=== PATIENT | male | born 1975 | race Two or more races ===

== ENCOUNTER 2024-05-14 10:57 | Emergency (ER) | payer MEDICAID, SELFPAY ==
[2024-05-14 11:10] VITALS: BP 125/81; PULSE 70; RESP 18; TEMP 37.1; O2SAT 96; BMI 31.3
--- NOTE | 2024-05-14 11:22 | EKG_ITS ---
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
--- NOTE | 2024-05-14 11:22 | XR_ITS ---
Examination: PA lateral chest 2 views TECHNIQUE: Upright PA lateral chest 2 views Exam date and time: May 14, 2024 1140 hours INDICATIONS: Onset chest pain today. FINDINGS: Normal heart size. Lungs are clear. The osseous structures are intact IMPRESSION: No active disease
--- NOTE | 2024-05-14 11:23 | PD.EDRME ---
Rapid Medical Screening Exam RME Arrival date/time: 05/14/24 10:57 48-year-old male presents emergency department complaints of dizziness generalized fatigue Chief Complaint: Flu Like Symptoms Time Seen by Provider: 05/14/24 10:58 Vital signs: Vital Signs Temperature 98.8 F 05/14/24 11:10 Pulse Rate 70 05/14/24 11:10 Respiratory Rate 18 05/14/24 11:10 Blood Pressure 125/81 05/14/24 11:10 Pulse Oximetry (%) 96 05/14/24 11:10 Oxygen Delivery Method Room Air 05/14/24 11:10
[2024-05-14 12:11] LABS: Basophils % (Auto) 1 % (0-2.5); Eosinophils % (Auto) 0 % (0-10); Hematocrit 47.1 % (41.0-53.0); Hemoglobin 16.4 g/dL (13.5-16.0); Immature Granulocytes % (Auto) 0 % (0-0); Immature Granulocytes Auto 0.03 Thou/mm3 (0.00-0.00); Lymphocytes # (Auto) 1.8 Thou/mm3 (1.0-4.8); Lymphocytes % (Auto) 21 % (10-50); Mean Corpuscular HGB Conc 34.8 g/dl (31.0-37.0); Mean Corpuscular Hemoglobin 29.4 pg (25.0-35.0); Mean Corpuscular Volume 85 fL (80-100); Monocytes # (Auto) 0.6 Thou/mm3 (0.0-0.8); Monocytes % (Auto) 7 % (0-12); Neutrophils # (Auto) 6.2 Thou/mm3 (1.8-7.7); Neutrophils % (Auto) 72 % (37-80); Nucleated Red Blood Cell % 0 /100 WBC (0); Platelet Count 196 Thou/mm3 (140-440); RDW Standard Deviation 36.2 fL (35.1-43.9); Red Blood Count 5.57 Miln/mm3 (4.50-5.90); White Blood Count 8.7 Thou/mm3 (3.8-10.6)
[2024-05-14 12:50] LABS: Alanine Aminotransferase < 7 U/L (10-49); Albumin/Globulin Ratio 1.9 (1.2-2.2); Alkaline Phosphatase 70 U/L (46-116); Anion Gap 9 (7-16); Aspartate Amino Transferase 21 U/L (0-34); BUN/Creatinine Ratio 10 Ratio (12-20); Bilirubin,Total 1.1 mg/dL (0.3-1.2); Blood Urea Nitrogen 9 mg/dL (9-23); Calcium 9.9 mg/dL (8.3-10.6); Calcium (Corrected) 9.9 mg/dL (8.5-10.1); Carbon Dioxide 26.1 mMol/L (20.0-31.0); Chloride 101 mMol/L (98-107); Creatinine (Component) 0.9 mg/dL (0.6-1.3); Estimated Creatinine Clearance 112.5 mL/min (>60); Globulin 2.7 gm/dL (2.3-3.5); Glucose 97 mg/dL (74-106); Osmolality,Calculated 270 (275-295); Sodium 136 mMol/L (136-145); Total Protein 7.7 gm/dL (5.7-8.2); Troponin I < 0.020 ng/mL (0.0-0.045); eGFR > 60 See Note
[2024-05-14 13:24] LABS: Collection Type, Urine Clean Catch; Squamous Epithelial Cell,Urine 0 /hpf (0-5)
[2024-05-14 13:33] LABS: Bacteria,Urine Rare; Bilirubin,Urine Negative (Negative); Blood,Urine Negative (Negative); Clarity,Urine Clear (Clear/Hazy); Color,Urine Yellow (Lt Yel-Yel); Culture Indicated,Urine Not Indicated; Glucose, Urine Negative (Negative); Ketones,Urine Negative (Negative); Leukocyte Esterase,Urine Negative (Negative); Nitrite,Urine Negative (Negative); PH,Urine 5.5 (5.0-7.0); Protein,Urine Negative (Neg - Trace); RBC,Urine 2 /hpf (0-3); Specific Gravity,Urine 1.024 (1.001-1.035); Urobilinogen,Urine Negative mg/dL (0.0-1.0); WBC,Urine 6 /hpf (0-5)
[2024-05-14 13:37] LABS: Amphetamine/Methamp Scrn,U Negative (Negative); Barbiturate Screen,Urine Negative (Negative); Benzodiazepines Screen,Urine Negative (Negative); Benzoylecgonine Screen, Ur Negative (Negative); Fentanyl Screen,Urine Negative (Negative); Opiate Screen,Urine Negative (Negative); THC Screen,Urine Negative (Negative)
[2024-05-14 13:46] VITALS: BP 133/76; PULSE 67; RESP 16; TEMP 36.4; O2SAT 98
--- NOTE | 2024-05-14 14:24 | PC.NURSE ---
in to assess pt. pt with c/o dizziness, nausea, weakness and headache since this morning. pt reports he is no longer having symptoms of dizziness at this time. pending providers eval at this time. call light is within reach. plan of care ongoing.
--- NOTE | 2024-05-14 14:44 | PD.EDADULT ---
ED General RME/HPI General Chief complaint: Dizziness Stated complaint: DIZZINESS, CHILLS, SWEATING, WEAK STOMACH Time Seen by Provider: 05/14/24 10:58 Arrival date/time: 05/14/24 10:57 CC: Dizziness HPI patient had onset of dizziness this morning been intermittent and ended after approximately 2 to 3 hours the patient denies any falls, but states the room was spinning no prior history of similar events denies chest pain shortness of breath difficulty breathing altered mentation is complaining of a mild headache that has since resolved. RME / HPI RME / HPI narrative: 05/14/24 10:57 48-year-old male presents emergency department complaints of dizziness generalized fatigue Related Data Previous Rx's ?Medication ?Instructions ?Recorded hydrocodone 5 mg-acetaminophen 325 1 tab PO BID PRN pain #14 tabs 01/19/21 mg tablet ibuprofen 800 mg tablet 800 mg PO TID PRN pain #30 tabs 01/19/21 meclizine 25 mg tablet 25 mg PO BID PRN dizziness #10 tabs 05/14/24 Allergies Allergy/AdvReac Type Severity Reaction Status Date / Time No Known Allergies Allergy Verified 05/14/24 11:00 Review of Systems Review of Systems Narrative Review of Systems: GEN: No fever, no chills, no weight loss EYES: No discharge, no visual changes, no pain HEENT: No ear pain, no congestion, no sore throat PULM: No shortness of breath, no cough, no congestion CV: No chest pain, no dyspnea on exertion, no palpitations GI: No nausea, no vomiting, no diarrhea, no pain, no constipation : No frequency, no urgency, no dysuria MUSC/SKEL: No joint pain, no back pain SKIN: No rash PSYCH: No hallucinations, no depression HEME/LYMPH: No easy bleeding or bruising tendencies NEURO: No weakness, + headache,+ dizziness ED Exam Narrative Physical exam: [General: Not in any acute distress Head normocephalic HEENT: Eyes pupils are PERRLA EOMs are intact no entrapment, no nystagmus vertical or horizontal, nose, no rhinorrhea all other subsystems of HEENT are within acceptable limits Neck is supple nontender Chest equal chest rise nontender to palpation Respiratory: Clear to auscultation no wheezes crackles or rubs CV: Rate rhythm is regular no murmurs rubs or clicks Abdomen is soft nontender no masses positive bowel sounds all 4 quadrants Back: No CVA tenderness no spinous process tenderness from cervical spine thoracic and lumbar spine Skin: Intact no petechiae rash induration ulceration or crepitus Extremities: Moving all extremity against resistance cap refill less than 2 seconds neurosensory intact Neuro: Awake alert oriented x3 Glascow coma 15 no focal deficits] Course Quality Measures none Orders Category Date Time Status Bedside COVID-19 Antigen Test NOW Care 05/14/24 11:22 Active Bedside Influenza A&B Antigen Test NOW Care 05/14/24 11:22 Completed EKG (ED ONLY) *Do not use* NOW Care 05/14/24 11:22 Completed EKG (ED Only) Stat Exams 05/14/24 11:22 Draft XR chest 2V Stat Exams 05/14/24 11:22 Completed CBC Stat Lab 05/14/24 11:57 Completed Comprehensive Metabolic Panel Stat Lab 05/14/24 11:57 Completed Drug Screen,Urine Stat Lab 05/14/24 13:17 Completed Troponin I Stat Lab 05/14/24 11:57 Completed UA, C/S IF [Urinalysis, C/S if Indicated] Stat Lab 05/14/24 13:17 Completed Vital Signs Vital signs: Vital Signs Temperature 98.8 F 05/14/24 11:10 Pulse Rate 70 05/14/24 11:10 Respiratory Rate 18 05/14/24 11:10 Blood Pressure 125/81 05/14/24 11:10 Pulse Oximetry (%) 96 05/14/24 11:10 Oxygen Delivery Method Room Air 05/14/24 11:10 [facility] Patient data External records reviewed:: [facility] previous records Clinical information provided by:: patient and spouse Social determinants that could affect healthcare access:: none Patient has the following chronic illnesses:: None How is presenting disease/condition affected by chronic disease/condition?: uneffected by Evaluation data The following diagnostics were reviewed and interpreted by me:: lab results Lab and/or radiology exams considered but not ordered:: CBC shows no acute leukocytosis anemia thrombocytopenia CMP shows no acute electrolyte imbalances renal impairment transaminitis or T. bili elevation Urine is negative Interpretation Summary: Most likely suspect vertigo in this patient we will discharge the patient on meclizine Medications Medications considered but not ordered:: None Medication administrations:: None Consultations Consultation(s) initiated? (list below): No Diagnosis Differential Diagnosis ED Complaint MDM: Vertigo anemia hypotension Most likely diagnosis given after review of the tests above:: Vertigo Admission Indicated Admission indicated?: not indicated Explain why admission is indicated or not indicated:: Stable for outpatient follow-up Admission Request Was there a request for admission?: No Disposition Plan Disposition Plan: Discharge Discharge Attestation Discharge Attestation: The patient and all family members were given an opportunity to ask questions and understood the discharge instructions. Discharge instructions specifically effects, indications for sooner follow up or return to the emergency department, and the expected course of current diagnosis. Patient condition: Stable Medical Decision Making Differential Diagnosis Differential Diagnosis: Vertigo anemia hypotension Lab Data 05/14/24 11:57 05/14/24 11:57 Labs: Lab Results 05/14/24 05/14/24 Range/Units 11:57 13:17 WBC 8.7 (3.8-10.6) Thou/mm3 RBC 5.57 (4.50-5.90) Miln/mm3 Hgb 16.4 H (13.5-16.0) g/dL Hct 47.1 (41.0-53.0) % MCV 85 (80-100) fL MCH 29.4 (25.0-35.0) pg MCHC 34.8 (31.0-37.0) g/dl RDW Std Deviation 36.2 (35.1-43.9) fL Plt Count 196 (140-440) Thou/mm3 Neut % (Auto) 72 (37-80) % Lymph % (Auto) 21 (10-50) % [place] % (Auto) 7 (0-12) % Eos % (Auto) 0 (0-10) % Baso % (Auto) 1 (0-2.5) % Neut # (Auto) 6.2 (1.8-7.7) Thou/mm3 Lymph # (Auto) 1.8 (1.0-4.8) Thou/mm3 [place] # (Auto) 0.6 (0.0-0.8) Thou/mm3 Eos # (Auto) 0.0 (0.0-0.5) Thou/mm3 Baso # (Auto) 0.0 (0.0-0.2) Thou/mm3 Immature Gran # (Auto) 0.03 H (0.00-0.00) Thou/mm3 Absolute Nucleated RBC 0.00 (0.00-0.00) Thou/mm3 Immature Gran % 0 (0-0) % Nucleated RBC % 0 (0) /100 WBC Sodium 136 (136-145) mMol/L Potassium 4.0 (3.4-5.1) mMol/L Chloride 101 (98-107) mMol/L Carbon Dioxide 26.1 (20.0-31.0) mMol/L Anion Gap 9 (7-16) BUN 9 (9-23) mg/dL Creatinine 0.9 (0.6-1.3) mg/dL Estim Creat Clear Calc 112.5 (>60) mL/min eGFR > 60 (60 - ) See Note BUN/Creatinine Ratio 10 L (12-20) Ratio Glucose 97 (74-106) mg/dL Calculated Osmolality 270 L (275-295) Calcium 9.9 (8.3-10.6) mg/dL Corrected Calcium 9.9 (8.5-10.1) mg/dL Total Bilirubin 1.1 (0.3-1.2) mg/dL AST 21 (0-34) U/L ALT < 7 L (10-49) U/L Alkaline Phosphatase 70 (46-116) U/L Troponin I < 0.020 (0.0-0.045) ng/mL Total Protein 7.7 (5.7-8.2) gm/dL Albumin 5.0 (3.5-5.0) gm/dL Globulin 2.7 (2.3-3.5) gm/dL Albumin/Globulin Ratio 1.9 (1.2-2.2) Ur Collection Type Clean Catch Urine Color Yellow (Lt Yel-Yel) Urine Clarity Clear (Clear/Hazy) Urine pH 5.5 (5.0-7.0) Ur Specific [place] 1.024 (1.001-1.035) Urine Protein Negative (Neg - Trace) Urine Glucose (UA) Negative (Negative) Urine Ketones Negative (Negative) Urine Blood Negative (Negative) Urine Nitrite Negative (Negative) Urine Bilirubin Negative (Negative) Urine Urobilinogen (Auto) Negative (0.0-1.0) mg/dL Ur Leukocyte Esterase Negative (Negative) Urine RBC 2 (0-3) /hpf Urine WBC 6 H (0-5) /hpf Ur Squamous Epith Cells 0 (0-5) /hpf Urine Bacteria Rare (None) Ur Culture Indicated? Not Indicated Urine Opiates Screen Negative (Negative) Urine Fentanyl Screen Negative (Negative) Ur Barbiturates Screen Negative (Negative) U Amphetamin/Meth Scrn Negative (Negative) U Benzodiazepines Scrn Negative (Negative) U Cocaine Metab Screen Negative (Negative) U Marijuana (THC) Screen Negative (Negative) Discharge Plan Plan Patient Disposition: HOME (Self Care) Patient condition on transfer: Stable Prescriptions/Referrals Prescriptions/Med Rec: New meclizine 25 mg tablet 25 mg PO BID PRN (Reason: dizziness) Qty: 10 0RF No Action ibuprofen 800 mg tablet 800 mg PO TID PRN (Reason: pain) Qty: 30 0RF hydrocodone-acetaminophen 5-325 mg tablet 1 tab PO BID MDD 10 PRN (Reason: pain) Qty: 14 0RF Referrals: No Primary/Family,Physician [Primary Care Provider] - In 1 week Problem List Clinical Impression: Vertigo Patient/Caregiver Discharge Instructions Education Materials: Vertigo Medicine Tx Print Language: Eritrean Stand Alone Forms: Monica Award Info., Patient Portal Info Letter, Work/School Release PA/CORRECTIONS UNIT SUPERVISOR Supervising Physician PA/CORRECTIONS UNIT SUPERVISOR Supervising Physician: Santana Boyce ENP
[2024-05-14 15:51] VITALS: BP 123/66; PULSE 65; RESP 18; TEMP 36.6; O2SAT 99
== END 2024-05-14 15:52 | disposition home or self-care (01) ==
PROVIDERS: Nurse Practitioner Primary Care; Emergency Provider Emergency Medicine
DX: R42 Dizziness and giddiness (principal)
CPT/HCPCS: 36415; 71046; 80053; 80307; 81001; 84484; 85025; 87400; 87811; 93005; 99283